=== PATIENT | male | born 1950 | race American Indian/Alaskan Native ===

== ENCOUNTER 2016-12-29 16:26 | Inpatient (IN) | payer MEDICARE, OTHER ==
[2016-12-29 16:42] VITALS: BMI 25.7
--- NOTE | 2016-12-29 17:06 | ED PDOC ---
Arrival/HPI - History of Present Illness Time/Duration: < week Symptom Onset: Sudden Symptom Course: Worsening Context: Home - General Chief Complaint: Lower Extremity Problem/Injury Time Seen by Provider: 12/29/16 16:39 - History of Present Illness Narrative History of Present Illness (Text): 12/29/16 16:57 66 year old male with past medical history of DM, HTN and recent left sided TKR presents for left knee skin abrasion. 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 Patient put a drying [place] from [place]. Today the scab began to peel and bleed again. patient denies having any pain in knee. Patient states that he has full range of motion in knee. denies having any purulent discharge. TKR was performed by Dr. Jamil at [facility] in 09/2016 ( Rachel Dong) Past Medical History - Provider Review Nursing Documentation Reviewed: Yes - Travel History Have you recently traveled outside [place] w/in the past 3 mons?: No If Yes, travel location?: [email or web address] - Infectious Disease Hx of Infectious Diseases: None - Cardiac Hx Cardiac Disorders: Yes Hx Hypertension: Yes - Pulmonary Hx Respiratory Disorders: No - Neurological Hx Neurological Disorder: No - HEENT Hx HEENT Disorder: No - Renal Hx Renal Disorder: No - Endocrine/Metabolic Hx Endocrine Disorders: Yes Hx Diabetes Mellitus Type 2: Yes - Hematological/Oncological Hx Blood Disorders: No - Integumentary Hx Dermatological Disorder: No - Musculoskeletal/Rheumatological Hx Musculoskeletal Disorders: Yes Hx Arthritis: Yes Other/Comment: L knee r/p september 2016 - Gastrointestinal Hx Gastrointestinal Disorders: No - Genitourinary/Gynecological Hx Genitourinary Disorders: No - Psychiatric Hx Psychophysiologic Disorder: No Hx Substance Use: No - Surgical History Hx Musculoskeletal Surgery: Yes (lumbar laminectomy) Other/Comment: L knee r/p - Anesthesia Hx Anesthesia: Yes Hx Anesthesia Reactions: No Hx Malignant Hyperthermia: No Family/Social History - Physician Review Nursing Documentation Reviewed: Yes Family/Social History: Unknown Family HX Smoking Status: Never Smoked Hx Alcohol Use: Yes (Occasional) Frequency of alcohol use: Socially Hx Substance Use: No Allergies/Home Meds Allergies/Adverse Reactions: Allergies No Known Allergies Allergy (Verified 12/29/16 16:41) Home Medications: Home Meds Medication Instructions Recorded Confirmed Glipizide [Glipizide ER] 2.5 mg PO DAILY 09/01/15 12/29/16 Losartan/Hydrochlorothiazide 1 tab PO DAILY 09/01/15 12/29/16 [Losartan-Hctz 100-12.5 mg Tab] Aspirin [Adult Low Dose Aspirin EC] 1 tab PO DAILY 12/29/16 12/29/16 Review of Systems - Review of Systems Constitutional: Normal. absent: Fatigue, Fevers Eyes: Normal. absent: Vision Changes, Photophobia ENT: Normal. absent: Hearing Changes, Rhinorrhea, Sinus Congestion Respiratory: Normal. absent: SOB, Cough, Sputum, Wheezing Cardiovascular: Normal. absent: Chest Pain, Palpitations, Edema, Calf Pain Gastrointestinal: Normal. absent: Abdominal Pain, Constipation, Diarrhea, Nausea, Vomiting Genitourinary Male: Normal. absent: Dysuria, Frequency Musculoskeletal: Normal. absent: Arthralgias, Back Pain, Neck Pain Skin: Cellulitis (left knee). absent: Rash, Pruritis, Skin Lesions Neurological: Normal. absent: Headache, Dizziness, Focal Weakness Endocrine: Normal. absent: Diaphoresis, Polyuria, Polydipsia Hemo/Lymphatic: Normal. absent: Adenopathy, Easy Bleeding, Easy Bruising Psychiatric: Normal. absent: Anxiety, Depression Physical Exam Vital Signs Reviewed: Yes Temperature: Afebrile Blood Pressure: Hypertensive Pulse: Regular Respiratory Rate: Normal Appearance: Positive for: Well-Appearing, Non-Toxic, Comfortable Pain Distress: None Mental Status: Positive for: Alert and Oriented X 3 - Systems Exam Head: Present: Atraumatic, Normocephalic Extroacular Muscles: Present: EOMI Mouth: Present: Moist Mucous Membranes Neck: Present: Normal Range of Motion Respiratory/Chest: Present: Clear to Auscultation, Good Air Exchange. No: Respiratory Distress, Accessory Muscle Use, Wheezes, Decreased Breath Sounds, Rales, Rhonchi Cardiovascular: Present: Regular Rate and Rhythm, Normal S1, S2. No: Murmurs, Irregular Rhythm, Gallop, Muffled Abdomen: Present: Normal Bowel Sounds. No: Tenderness, Distention, Peritoneal Signs, Rebound, Guarding Upper Extremity: Present: Normal Inspection, Normal ROM. No: Edema Lower Extremity: No: CALF TENDERNESS, Cyanosis Neurological: Present: GCS=15 Skin: Present: Warm, Normal Color, Other (left knee abrasion with small amount of purulent discharge and warmth. ) Medical Decision Making - Lab Interpretations I have reviewed the lab results: Yes ED Course and Treatment: 12/29/16 17:19 66 year old male presents for left knee cellulitis Dr. Foster spoke with Dr. Jamil over the phone who recommends admitting patient for observation for IV antibiotics as patient has increased chance of skin infection spreading to joint. Will check: CBC, CMP, CXR, Left knee xray, left wound culture and blood cultures. Patient will be given vancomycin and unasyn 12/29/16 19:16 Dr. Foster spoke with Dr. Terry who accepts patient under observation to med/ surg (Letitia,Rachel) 12/29/16 19:42 Patient seen and examined with resident. Cutaneous scab is present on the left knee, which is less than 3 months s/p TKR; there is some oozing of pus from the wound, and the patient is a diabetic. The case was discussed with Dr. Alexander , who recommends placing the patient in the hospital for iv antibiotics, given his diabetes and concern for easy spread of the infection in to the intra- articular region. Case discussed with Dr. Terry who agrees with placing the patient on her service and consult with ID. Patient started on vanco and unasyn. (Adam Foster) - Lab Interpretations Narrative Lab Interpretation (Text): 12/29/16 19:41 Cr noted to be 1.7 (previous 1.9 in September) 12/29/16 19:41 (Karila,Rachel) - Medication Orders Current Medication Orders: Aspirin (Ecotrin) 81 mg PO DAILY MARCELINA Famotidine (Pepcid) 40 mg PO HS MARCELINA Glipizide (Glucotrol Xl) 2.5 mg PO DAILY MARCELINA Hydrochlorothiazide (Microzide) 12.5 mg PO DAILY MARCELINA Hydromorphone HCl (Dilaudid) 0.25 mg IVP Q4H PRN PRN Reason: Pain, Mild (1-3) Sodium Chloride (Sodium Chloride 0.9%) 1,000 mls @ 100 mls/hr IV .Q10H STA Stop: 12/30/16 04:01 Last Admin: 12/29/16 18:55 Dose: 100 mls/hr Ampicillin Sodium/Sulbactam Sodium (Unasyn 1 Gm-0.5 Gm) 1 gm in 100 mls @ 100 mls/hr IVPB ONCE ONE PRN Reason: Protocol Stop: 12/29/16 20:39 Insulin Human Regular (Humulin R Low) 0 units SC ACHS MARCELINA PRN Reason: Protocol Losartan Potassium (Cozaar) 100 mg PO DAILY MARCELINA Non-Formulary Medication (Losartan/Hydrochlorothiazide [Losartan-Hctz 100-12.5 Mg Tab]) 1 tab PO DAILY MARCELINA Discontinued Medications Ampicillin Sodium/Sulbactam (Sodium 3 gm/ Sodium Chloride) 100 mls @ 100 mls/ hr IVPB STAT STA PRN Reason: Protocol Stop: 12/29/16 18:14 Vancomycin HCl (Vancomycin 1gm) 1 gm in 250 mls @ 167 mls/hr IVPB STAT STA PRN Reason: Protocol Stop: 12/29/16 18:44 Last Admin: 12/29/16 18:55 Dose: 167 mls/hr Disposition/Present on Arrival - Present on Arrival Any Indicators Present on Arrival: No History of DVT/PE: No History of Uncontrolled Diabetes: No Urinary Catheter: Yes (BETHANY PEREZ) History of Decub. Ulcer: No History Surgical Site Infection Following: None - Disposition Have Diagnosis and Disposition been Completed?: Yes Disposition Time: 19:16 Patient Plan: Observation - Disposition Diagnosis: Cellulitis of knee, left Disposition: HOSPITALIZED Patient Problems: Current Active Problems Problem Status Onset Cellulitis Acute Condition: STABLE
[2016-12-29] MEDS ORDERED: Vancomycin 1gm in NS 250ml 1 GM/250 ML BAG IVPB STA (17:15)
[2016-12-29] MEDS ORDERED: Ampicillin/Sulbactam 3 GM in Sodium Chloride 0.9% 100 ML IVPB STA (17:15)
[2016-12-29 17:57] LABS: HEMATOCRIT 32.8 % (42.0-52.0); MEAN CELL VOLUME 92.9 fl (80.0-105.0); MEAN CORPUSCULAR HGB CONC 34.5 g/dl (31.0-37.0); MEAN PLATELET VOLUME 10.1 fl (7.0-11.0); RED CELL DISTRIBUTION WIDTH 14.2 % (11.5-14.5); WHITE BLOOD COUNT 5.9 10^3/ul (4.5-11.0)
[2016-12-29 18:00] LABS: ALB/GLOB RATIO 1.2 (1.1-1.8); BILIRUBIN,TOTAL 0.4 mg/dL (0.2-1.3); CALCIUM 9.2 mg/dL (8.4-10.5); POTASSIUM 4.9 mmol/L (3.6-5.0); TOTAL PROTEIN 7.6 g/dL (5.8-8.3)
[2016-12-29] MEDS ORDERED: Sodium Chloride 0.9% 1,000 ML IV STA (18:02)
[2016-12-29] MEDS ORDERED: HYDROmorphone 0.5 mg/0.5 ml ISec IVP PRN (19:38)
[2016-12-29] MEDS: Insulin Reg-LOW-Coverage SC SCH (22:13)
--- NOTE | 2016-12-30 07:50 | RAD ---
PROCEDURE: Left Knee Radiographs. HISTORY: Pain. COMPARISON: None. FINDINGS: BONES: No fracture JOINTS: Status post left knee arthroplasty. No evidence of prosthesis loosening. Prosthesis appears intact. JOINT EFFUSION: None. OTHER FINDINGS: None. IMPRESSION: Left knee arthroplasty.
--- NOTE | 2016-12-30 07:50 | RAD ---
HISTORY: r/o infection COMPARISON: No prior. FINDINGS: LUNGS: No active pulmonary disease. PLEURA: No significant pleural effusion identified, no pneumothorax apparent. CARDIOVASCULAR: Normal. OSSEOUS STRUCTURES: No significant abnormalities. VISUALIZED UPPER ABDOMEN: Normal. OTHER FINDINGS: None. IMPRESSION: No active disease.
[2016-12-30] MEDS: Insulin Reg-LOW-Coverage SC SCH ×3 (08:20→22:44)
[2016-12-30] MEDS ORDERED: Non Formulary Medication (Losartan/Hydrochlorothiazide [Losartan-Hctz 100-12.5 Mg Tab] 1 T PO SCH (10:00)
[2016-12-30] MEDS: GlipiZIDE 2.5 mg SR Tab PO SCH (10:44)
--- NOTE | 2016-12-30 12:21 | CP.PCM.CON ---
History of Present Illness - History of Present Illness History of Present Illness: 66 year old male with PMH of left knee arthroplasty September 2016, DM, HTN, came in to [facility] after he sustained a left knee abrasion 3 days ago. 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 He put dry powder on it, felt well for a few days, but peeled off again and started bleeding yesterday. He denies animal contacts or specific soil contact on the abrasion. He has full motion of his left knee joint, no swelling, no fever or chills, no nausea or vomiting, no chest pain , no SOB, no headache or dizziness , no abdominal pain, no diarrhea, no dysuria. Infectious diseases consult is requested to further evaluate and manage. Review of Systems - Review of Systems All systems: reviewed and no additional remarkable complaints except (as per HPI ) Past Patient History - Infectious Disease Hx of Infectious Diseases: None - Past Medical History & Family History Past Medical History?: Yes - Past Social History Smoking Status: Never Smoked - CARDIAC Hx Cardiac Disorders: Yes Hx Hypertension: Yes - PULMONARY Hx Respiratory Disorders: No - NEUROLOGICAL Hx Neurological Disorder: No - HEENT Hx HEENT Problems: No - RENAL Hx Chronic Kidney Disease: No - ENDOCRINE/METABOLIC Hx Endocrine Disorders: Yes Hx Diabetes Mellitus Type 2: Yes - HEMATOLOGICAL/ONCOLOGICAL Hx Blood Disorders: No - INTEGUMENTARY Hx Dermatological Problems: No - MUSCULOSKELETAL/RHEUMATOLOGICAL Hx Musculoskeletal Disorders: Yes Hx Arthritis: Yes Other/Comment: L knee r/p september 2016 - GASTROINTESTINAL Hx Gastrointestinal Disorders: No - GENITOURINARY/GYNECOLOGICAL Hx Genitourinary Disorders: No - PSYCHIATRIC Hx Psychophysiologic Disorder: No Hx Substance Use: No - SURGICAL HISTORY Hx Musculoskeletal Surgery: Yes (lumbar laminectomy) Other/Comment: L knee r/p - ANESTHESIA Hx Anesthesia: Yes Hx Anesthesia Reactions: No Hx Malignant Hyperthermia: No Meds Allergies/Adverse Reactions: Allergies Allergy/AdvReac Type Severity Reaction Status Date / Time No Known Allergies Allergy Verified 12/29/16 16:41 - Medications Medications: Current Medications Aspirin (Ecotrin) 81 mg PO DAILY MARCELINA Famotidine (Pepcid) 40 mg PO HS MARCELINA Last Admin: 12/29/16 22:13 Dose: 40 mg Glipizide (Glucotrol Xl) 2.5 mg PO DAILY MARCELINA Hydrochlorothiazide (Microzide) 12.5 mg PO DAILY [facility] Hydromorphone HCl (Dilaudid) 0.25 mg IVP Q4H PRN PRN Reason: Pain, Mild (1-3) Sodium Chloride (Sodium Chloride 0.9%) 1,000 mls @ 100 mls/hr IV .Q10H STA Stop: 12/30/16 04:01 Last Admin: 12/29/16 18:55 Dose: 100 mls/hr Insulin Human Regular (Humulin R Low) 0 units SC ACHS MARCELINA PRN Reason: Protocol Last Admin: 12/29/16 22:13 Dose: Not Given Losartan Potassium (Cozaar) 100 mg PO DAILY MARCELINA Physical Exam - Constitutional Appears: Non-toxic, No Acute Distress - Head Exam Head Exam: NORMAL INSPECTION - ENT Exam ENT Exam: Mucous Membranes Moist - Neck Exam Neck exam: Negative for: Meningismus - Respiratory Exam Respiratory Exam: Decreased Breath Sounds. absent: Rales - Cardiovascular Exam Cardiovascular Exam: +S1, +S2 - GI/Abdominal Exam GI & Abdominal Exam: Soft. absent: Tenderness - Extremities Exam Additional comments: left knee with skin and soft tissue abrasion, no note of tunneling, no probe to joint area, no pus or bleeding currently Results - Vital Signs Recent Vital Signs: Last Vital Signs Temp 97.6 F 12/29/16 16:46 Pulse 78 12/29/16 16:46 Resp 19 12/29/16 16:46 BP 162/100 H 12/29/16 16:46 Pulse Ox 98 12/29/16 16:46 - Labs Result Diagrams: 12/29/16 17:30 12/29/16 17:30 Labs: Laboratory Results - last 24 hr 12/29/16 12/29/16 17:30 17:30 WBC 5.9 RBC 3.53 Hgb 11.3 L Hct 32.8 L MCV 92.9 MCH 32.0 MCHC 34.5 RDW 14.2 Plt Count 209 MPV 10.1 Sodium 140 Potassium 4.9 Chloride 107 Carbon Dioxide 22 Anion Gap 16 BUN 41 H Creatinine 1.7 H Est GFR ( Amer) 49 Est GFR (Non-Af Amer) 40 Random Glucose 118 H Calcium 9.2 Total Bilirubin 0.4 AST 26 ALT 29 Alkaline Phosphatase 74 Total Protein 7.6 Albumin 4.2 Globulin 3.4 Albumin/Globulin Ratio 1.2 Assessment & Plan - Assessment and Plan (Free Text) Plan: Assessment left knee abrasion with probable skin and soft tissue infection left knee arthroplasty September 2016 DM HTN Plan Started patient on Teflaro pending blood and wound cx; continue local wound care ; reviewed knee xray which did not show joint effusion and prothesis intact and in place follow up Ortho evaluation will monitor clinically
--- NOTE | 2016-12-30 15:26 | CON ---
DATE: 12/30/2016 REASON FOR CONSULT: Left knee abrasion, status post left total knee replacement. HISTORY OF PRESENT ILLNESS: This is a 66-year-old gentleman who was admitted yesterday for left knee cellulitis. The patient states that he was kneeling on towel trying to reach for something underneath the bed and later on that evening he noticed the skin had been scraped off. Subsequently went to the emergency room, was evaluated and now presents for further evaluation and treatment. He denies any history of any fevers, he denies any knee pain. PAST MEDICAL HISTORY: Significant for diabetes. EXAMINATION OF THE LEFT KNEE: He has a healed midline incision approximately 1/3rd distal to the proximal pole of the incision right over the patella. He has a, what looks like, partial thickness skin loss consistent with an abrasion. No gross purulence is appreciated. No knee effusion is appreciated. He is able to actively flex and extend the knee from about -3 to approximately 110 degrees without any pain. He is stable and well balanced with varus and valgus stress. His thigh and calf are soft and nontender. IMAGING: X-rays of his left knee show a left total knee implant in good position, no evidence of any loosening is appreciated, no periprosthetic fracture is appreciated. PLAN: At this point, the patient has been started on IV antibiotics. Due to his history of diabetes, I feel like he should continue with the antibiotics. Recommendation was for him to be discharged on p.o. antibiotics and for him to follow up with me in the office next week. Bryson Alexander MD
[2016-12-31 07:14] LABS: ALB/GLOB RATIO 1.2 (1.1-1.8); BILIRUBIN,TOTAL 0.7 mg/dL (0.2-1.3); CALCIUM 9.5 mg/dL (8.4-10.5); TOTAL PROTEIN 7.8 g/dL (5.8-8.3)
[2016-12-31] MEDS: Insulin Reg-LOW-Coverage SC SCH ×2 (07:45→12:26)
[2016-12-31 08:40] VITALS: BP 157/91; PULSE 58; RESP 16; TEMP 98; O2SAT 100
[2016-12-31] MEDS: GlipiZIDE 2.5 mg SR Tab PO SCH (09:16)
[2016-12-31] MEDS ORDERED: Amoxicillin-Clav 875-125 mg Tab PO SCH (10:00)
--- NOTE | 2017-01-01 02:56 | PN ---
DATE: 12/31/2016 SUBJECTIVE: Patient seen early this morning. Patient is in bed in no acute distress. PHYSICAL EXAMINATION: VITAL SIGNS: Temperature is 98, blood pressure is 150/90 and respiratory rate of 16. HEENT: Unremarkable. NECK: Supple. LUNGS: Decreased breath sounds. HEART: Normal S1 and S2. ABDOMEN: Soft. EXTREMITIES: Examination of the leg, almost resolved small ulceration, the patient has full range of motion. No evidence of infection. LABORATORY DATA: Reveals white count of 5.9, hemoglobin of 11 and platelets of 209. Chemistry reveals of BUN of 28 and creatinine of 1.7. Microbiology reveals the Corynebacterium species on left leg. Blood cultures and urine cultures negative. ASSESSMENT AND PLAN: A 66-year-old with left knee abrasion probable skin and skin soft tissue infection and left knee arthroplasty in September 2016. He will be discharge on p.o. Augmentin and p.o. doxycycline to complete therapy. Williams Michael MD
--- NOTE | 2017-01-01 13:23 | HP ---
CHIEF COMPLAINT: Left lower extremity problem. HISTORY OF PRESENT ILLNESS: Mr. Shavonne Dangelo is a 66-year-old male with past medical history of diabetes mellitus, hypertension, left-sided BKA, sent to the emergency room with left knee skin abrasion. The patient states that few days ago, he was on his knees feeling tired when he got an abrasion on his left knee. The patient put a drained powder on his knee from his country later he was back home. Now the patient has scab and under the scab there was a pus. Actually, the patient came to my office and I sent the patient to the emergency room. Once as he was got in [place] country, I do not known hygienic condition there and second thing, the patient need tetanus injection, last tetanus injection may be 20 years ago, the pus was coming underneath the scab that is why I sent the patient to the emergency room. Denies having decrease in range of motion and that he has total knee replacement by Dr. Alexander at [facility]. Recently, the patient was consulted by Dr. Alexander, an infectious disease. PAST MEDICAL AND SURGICAL HISTORY: The patient just came back from [place]. Hypertension, diabetes mellitus, arthritis, left knee replacement, surgery of the back, and lumbar laminectomy, FAMILY HISTORY: Father and mother noncontributory. HABITS: No smoking. No drugs or ethanol. Does drink alcohol occasionally. ALLERGIES: THE PATIENT IS NOT ALLERGIC WITH ANY MEDICATION. HOME MEDICATIONS: Glipizide, Losartan, and aspirin. REVIEW OF SYSTEMS: The patient is seen on the bedside on 12/30/2016 and looking comfortable. No nausea, vomiting, or diarrhea. No hematuria or hematochezia. No headache and no dizziness. No chest pain and no fever. Still having abrasions on the left knee. PHYSICAL EXAMINATION: VITAL SIGNS: Temperature 97.8, pulse 63, blood pressure 140/93, respiratory rate 20. HEENT: Head normocephalic and atraumatic. Eyes, PERRLA. Extraocular muscles intact. Conjunctivae are clear. Nose is patent. Mucous membrane moist. NECK: Supple. No carotid bruits. No thyromegaly. CHEST: Bilaterally symmetrical. HEART: S1 and S2 positive. LUNGS: Clear to auscultation. ABDOMEN: Soft. Bowel sounds positive. No organomegaly. EXTREMITIES: Left knee has dressing, otherwise, no cyanosis. No edema. LABORATORY DATA: White blood cell 7.9, hemoglobin 11.3, hematocrit 32.8, platelets 209. Sodium 140, potassium 5.0, BUN 28, creatinine 1.7, glucose 197. ASSESSMENT AND PLAN: Mr. Shavonne Dangelo is 56 years old male. His left knee abrasion is probably skin and soft tissue infection, left knee arthroplasty, diabetes mellitus, hypertension. Started the patient on Teflaro, pending on blood and wound cultures. Continue local wound care. Reviewed the knee x-rays, which did not show any joint effusion after prosthesis infect in the place. The patient was seen by seen by Dr. Alexander, orthopedic. According to Dr. Alexander, the patient has been started on antibiotics. Due to the history of diabetes, the patient should continue with his antibiotics. Recommendation was for him to discharge on p.o. antibiotics and for him to follow up with Dr. Alexander in his office next week. GI and DVT prophylaxis. Repeat labs. Mohini Terry MD
--- NOTE | 2017-01-15 01:52 | DS ---
CHIEF COMPLAINT: Left lower extremity problem. HISTORY OF PRESENT ILLNESS: The patient is a 66-year-old male was seen in my office on 12/29/2016 for pain in the leg after a fall. I did H and P on 12/30/2016. The patient has history of diabetes mellitus, hypertension, left-sided total knee replacement, sent to the emergency room with left knee pain and skin abrasion. The patient states that few days before that he was out of country, had a fall, had abrasion, came in my office, it was like pusy discharge. I was sent him to the hospital, be admitted. ID consult called, couple of the antibiotics given, got better, discharged home. On 12/31/2016, follow with primary care physician and ID. PAST MEDICAL HISTORY: Hypertension, diabetes mellitus, left total knee replacement, lumbar laminectomy. FAMILY HISTORY: Father and mother noncontributory. HABITS: No smoking, no drugs and no ethanol. ALLERGIES: THE PATIENT IS NOT ALLERGIC TO ANY MEDICATION. HOME MEDICATIONS: Reviewed by me. REVIEW OF SYSTEMS: The patient is seen and examined on the bedside, looking comfortable. No nausea, vomiting or diarrhea. No hematuria or hematochezia. No swelling of the legs. No chest pain. No palpitations. No headaches. No dizziness. PHYSICAL EXAMINATION: VITAL SIGNS: Temperature 98.0, pulse 68, blood pressure 165/91 and respiratory rate 16. HEENT: Head normocephalic and atraumatic. Eyes; PERRLA. Extraocular muscles intact. Conjunctiva clear. Nose patent. Mucous membrane moist. NECK: Supple. No carotid bruits. No JVD or thyromegaly. CHEST: Bilaterally symmetrical. HEART: S1 and S2 positive. LUNGS: Clear to auscultation. ABDOMEN: Soft. Bowel sounds positive. No organomegaly. EXTREMITIES: No edema. No cyanosis. NEUROLOGIC: The patient is awake and alert, moving all 4 extremities. No focal deficit. LABORATORY DATA: White blood cells 5.9, hemoglobin 11.3, hematocrit 32.8, platelets 209. Sodium 140, potassium 5.0, BUN 28, creatinine 1.7, glucose 197. ASSESSMENT AND PLAN: The patient is a 66-year-old male with anemia, iron insufficiency, diabetes mellitus, history of left knee replacement, lumbar laminectomy, came with left knee abrasion, soft tissue infection, hypertension, hypercholesterolemia, got Teflaro, wound care given. Seen by Dr. Alexander, orthopedic. Due to his history of diabetes, the patient needs antibiotics. Dr. Alexander recommended after completion of antibiotics, patient should follow up with Dr. Alexander's office as an outpatient. The patient was discharged home with Augmentin and p.o. doxycycline to complete with therapy. We will follow up. Mohini Terry MD
== END 2016-12-31 13:18 | disposition home or self-care (01) | DRG 603 ==
LOC: ED 16:26 → ERH 17:14 → 5RSO 19:34 → OBSVTOIN 12-30 10:57
PROVIDERS: ADMIT Internal Medicine; ATTEND Internal Medicine
DX: L03.116 Cellulitis of left lower limb (principal); I10 Essential (primary) hypertension; E11.9 Type 2 diabetes mellitus without complications; Z96.652 Presence of left artificial knee joint; S80.212A Abrasion, left knee, initial encounter; Y93.E5 Activity, floor mopping and cleaning; Y92.008 Other place in unspecified non-institutional (private) residence as the place of occurrence of the external cause; Z79.84 Long term (current) use of oral hypoglycemic drugs; Z79.82 Long term (current) use of aspirin